=== PATIENT | female | born 1960 | race Caucasian/White ===

== ENCOUNTER 2024-07-04 11:47 | Emergency (ER) | payer BC ==
[2024-07-04] MEDS: Acetaminophen 500 MG Tab PO ONE (12:43)
== END 2024-07-04 13:14 | disposition home or self-care (01) ==
LOC: JP.ED 11:47
DX: S52.502A Unspecified fracture of the lower end of left radius, initial encounter for closed fracture (principal); Z86.16 Personal history of COVID-19; Z79.899 Other long term (current) drug therapy; Z91.041 Radiographic dye allergy status; Z88.0 Allergy status to penicillin; W01.0XXA Fall on same level from slipping, tripping and stumbling without subsequent striking against object, initial encounter
CPT/HCPCS: 73110; 99283; A9270